=== PATIENT | male | born 1980 | race Caucasian/White ===

== ENCOUNTER → 2019-02-22 | Day surgery (SDC) | payer BC ==
[~2019-02-22] MED LIST: ACETAMINOPHEN 1000 MG/100 ML IV ONE; CLINDAMYCIN 600MG / 50ML 50 ML IV ONE; DEXAMETHASONE SOD PHOS INJ 4 MG/ML VIAL ONE; FENTANYL CITRATE/PF 100MCG/2 ML INJ ONE; KETOROLAC TROMETHAMINE 30 MG/ML VIAL ONE; LIDOCAINE HCL 2% LOCAL INJ 5 ML SDV VIAL INJ ONE; MIDAZOLAM HCL 2 MG/2 ML VIAL ONE; ONDANSETRON HCL INJ 2MG/ML 2ML 2 MG/ML VIAL ONE; PROPOFOL IV EMULSION 10 MG/ML 20 ML VIAL ONE; SEVOFLURANE INHAL SOLN 250 ML PEN BTL ONE
[2019-02-22 10:00] VITALS: BP 111/77
--- NOTE | 2019-02-23 05:06 | Operative Report ---
DATE OF PROCEDURE: 02/22/2019 SURGEON: Oliver Hayse MD TOLL LINE INSPECTOR: Steve Uriostegui. PREOPERATIVE DIAGNOSIS: Left knee medial meniscal tear. POSTOPERATIVE DIAGNOSIS: Left knee medial meniscal tear. PROCEDURES: Left knee arthroscopy and partial medial meniscectomy. INDICATIONS: The patient is a 38-year-old gentleman, who injured his left knee skiing. Clinic exam and MRI findings were consistent with a complex tear of the posterior horn of the medial meniscus. He has failed conservative management and would like to proceed with arthroscopic intervention. The risks and benefits of the procedure have been discussed. He states he understands and wishes to proceed. PROCEDURE IN DETAIL: The patient was brought to the operating room and placed under general anesthetic. His left lower extremity was prepped and draped in a sterile manner. A preoperative time-out was performed. A tourniquet on the proximal thigh had been inflated to 300 mmHg. Standard arthroscopy portals were established. The knee was insufflated with sterile saline and systematically inspected. The patellofemoral groove and suprapatellar pouch were unremarkable. The medial and lateral gutters were unremarkable. The medial compartment demonstrated well-preserved articular cartilage on the distal femur and proximal tibia. There was indeed a complex tear of the posterior horn of the medial meniscus with a large radial fragment. I did not feel like this was repairable. A partial medial meniscectomy was performed using a combination of biting forceps and a mechanical shaver. Less than 20% of the posterior horn of the medial meniscus was excised. Before and after photographs were taken. The remainder of the knee including the cruciate ligaments and lateral compartment were inspected and probed. There was no abnormalities. The arthroscopic instruments were removed. The portal incisions were closed with nylon stitches. A sterile bandage was applied. The patient was extubated and transported to the recovery room in stable condition. Oliver Hayes MD DR/MODL /[id number]
== END | disposition home or self-care (01) ==
LOC: OR 05:23
PROVIDERS: ATTEND Specialist
DX: S83.232A Complex tear of medial meniscus, current injury, left knee, initial encounter (principal); C85.90 Non-Hodgkin lymphoma, unspecified, unspecified site; X58.XXXA Exposure to other specified factors, initial encounter; Y93.23 Activity, snow (alpine) (downhill) skiing, snowboarding, sledding, tobogganing and snow tubing; Y99.8 Other external cause status; Z88.0 Allergy status to penicillin
CPT/HCPCS: 29881; J0131; J1100; J1885; J2001; J2250; J2405; J2704